=== PATIENT | female | born 1985 | race Caucasian/White ===

== ENCOUNTER 2018-12-27 08:23 | Inpatient (IN) | payer MEDICAID, OTHER ==
[2018-12-27] MEDS ORDERED: LACTATED RINGERS 500 ML IV ONE (08:47)
[2018-12-27] MEDS ORDERED: BRETHINE ONE (10:09)
[2018-12-27 11:24] LABS: Bacteria,Urine 2+ /HPF (Negative); Bilirubin,Urine NEG (Negative); Blood,Urine MOD (Negative); Color,Urine Yellow (Yellow); Urobilinogen,Urine < 2.0 mg/dL (<2.0)
[2018-12-27] MEDS ORDERED: BRETHINE SUB-Q SCH (12:00)
[2018-12-27] MEDS ORDERED: LACTATED RINGERS 1,000 ML ONE (12:30)
[2018-12-27] MEDS ORDERED: ANCEF/NS 1 GM/50 ML 1 GM/50 ML BAG IV ONE (14:30)
[2018-12-27] MEDS ORDERED: PROCARDIA*For Tocolysis only PO SCH ×2 (15:00→17:22)
[2018-12-27] MEDS ORDERED: TYLENOL PO PRN (18:57)
[2018-12-27] MEDS ORDERED: COLACE PO PRN (18:57)
[2018-12-27 19:25] LABS: Basophils # (Auto) 0.1 K/mm3 (0.0-0.1); Basophils % (Auto) 0.8 % (0.0-1.8); Eosinophils % (Auto) 0.5 % (0.0-4.3); Hematocrit 40.2 % (30.3-42.9); Hemoglobin 13.6 gm/dl (10.1-14.3); Lymphocytes # (Auto) 1.3 K/mm3 (1.2-5.4); Lymphocytes % (Auto) 14.4 % (13.4-35.0); Mean Corpuscular HGB Conc 34 % (30-34); Mean Corpuscular Volume 90 fl (79-97); Monocytes # (Auto) 0.8 K/mm3 (0.0-0.8); Monocytes % (Auto) 8.8 % (0.0-7.3); Platelet Count 202 K/mm3 (140-440); Red Blood Count 4.49 M/mm3 (3.65-5.03); Red Cell Distribution Width 14.6 % (13.2-15.2)
[2018-12-27] MEDS ORDERED: CELESTONE SOLUSPAN IM SCH (20:00)
[2018-12-27] MEDS: LACTATED RINGERS 1,000 ML IV SCH ×2 (21:18→23:08)
[2018-12-27] MEDS ORDERED: PITOCin/NS 20 UNIT/1000ML DRIP 20,000 MILLIUNITS/1,000 ML BAG IV ONE (23:10)
[2018-12-27] MEDS ORDERED: XYLOCAINE 2% INFILTRATI ONE (23:55)
--- NOTE | 2018-12-28 00:03 | History and Physical Report ---
History of Present Illness Date of examination: 12/27/18 Date of admission: 12/27/18 19:15 Chief complaint: Labor History of present illness: Pt is a 33yo HF EDC 02/01/19; EGA 34 6/7 weeks presents to L&D complaining of RUC's q 3-5 mins. Cx 10/100/V/+1 She had a previous C Section and received care at [facility]. records are available and GBS is unknown. Past History Past Medical History: no pertinent history Past Surgical History: section Family/Genetic History: none Social history: no significant social history, single - Obstetrical History Expected Date of Delivery: 02/01/19 Actual Gestation: 35 Week(s) 0 Day(s) : 2 Medications and Allergies Allergies Allergy/AdvReac Type Severity Reaction Status Date / Time No Known Allergies Allergy Verified 08/30/13 14:05 Home Medications Medication Instructions Recorded Confirmed Last Taken Type Ferrous Sulfate [Iron Supplement] 325 mg PO DAILY 08/30/13 12/27/18 12/24/18 Hi story Ferrous Sulfate [Feosol 325 MG tab] 325 mg PO BID #60 tablet 09/01/13 12/27/18 12/24/18 Rx HYDROcodone/APAP 5-325 [[place] 1 each PO Q6HR PRN #30 tablet 09/01/13 12/27/18 Unknown Rx 5/325 mg] Ibuprofen [Motrin] 800 mg PO TID PRN #30 tablet 09/01/13 12/27/18 Unknown Rx [id number]/Iron Fum/Folic/Docusate 1 each PO QDAY #30 tablet 09/01/13 12/27/18 12/24/18 Rx [ 19 Tablet] Labetalol [Normodyne TAB] 200 mg PO BID #60 tablet 09/04/13 12/27/18 11/23/18 Rx Active Meds: Active Medications Acetaminophen (Tylenol) 650 mg PO Q4H PRN PRN Reason: Pain MILD(1-3)/Fever >100.5/[facility] Last Admin: 12/27/18 21:31 Dose: 650 mg Documented by: Betamethasone Acet/Betameth SodPhos ([place] Soluspan) 12 mg IM Q24HR JASMYNE Stop: 12/28/18 10:01 Last Admin: 12/27/18 21:05 Dose: 12 mg Documented by: Docusate Sodium (Colace) 100 mg PO Q12H PRN PRN Reason: Constipation Lactated Ringer's (Lactated Ringers) 1,000 mls @ 125 mls/hr IV DIRECT [facility] Last Admin: 12/27/18 23:08 Dose: 125 mls/hr Documented by: Multivitamins/Iron/Calcium ( Vitamin) 1 each PO QDAY [facility] Nifedipine (Procardia*For Tocolysis Only*) 10 mg PO NOW [facility] Last Admin: 12/27/18 17:29 Dose: 10 mg Documented by: Terbutaline Sulfate (Brethine) 0.25 mg SUB-Q Q20MIN [facility] Stop: 12/29/18 12:01 Last Admin: 12/27/18 11:50 Dose: 0.25 mg Documented by: Review of Systems All systems: negative - Vital Signs Vital signs: Vital Signs Pulse BP 73 144/99 12/27/18 09:01 12/27/18 09:01 Temp Pulse Resp BP Pulse Ox 99.1 F 75 16 127/67 12/27/18 10:30 12/27/18 23:06 12/27/18 10:30 12/27/18 23:06 - Physical Exam Breasts: Positive: deferred Cardiovascular: Regular rate Lungs: Positive: Clear to auscultation Abdomen: Positive: normal appearance Genitourinary (Female): Positive: normal external genitalia Vagina: Positive: normal moisture Uterus: Positive: enlarged Extremities: Positive: normal - Obstetrical FHR: category 1 Uterine Contraction Monitor Mode: External Cervical Dilatation: 10 Cervical Effacement Percentage: 100 station: +1 Uterine Contraction Pattern: Regular Uterine Tone Measurement Phase: Contraction Uterine Contraction Intensity: Strong/Firm Results Result Diagrams: 12/27/18 19:06 Abnormal lab results 12/27/18 12/27/18 Range/Units 10:30 19:06 [place] % (Auto) 8.8 H (0.0-7.3) % Seg Neutrophils % 75.5 H (40.0-70.0) % U Epithel Cells (Auto) 20.0 H (0-13.0) /HPF All other labs normal. Assessment and Plan - Patient Problems (1) 35 weeks gestation of Onset Date: 12/27/18 Current Visit: Yes Status: Acute Plan to address problem: A: IUP @ 34 6/7 weeks Previous C Section Unknown GBS P: Admit to L&D for imminent delivery NICU notified (2) Previous section Onset Date: 12/27/18 Current Visit: Yes Status: Chronic
[2018-12-28] MEDS ORDERED: XYLOCAINE 2% INFILTRATI ONE (00:08)
[2018-12-28] MEDS ORDERED: SUBLIMAZE IV PRN (00:08)
[2018-12-28] MEDS ORDERED: STADOL IV PRN (00:08)
[2018-12-28] MEDS ORDERED: BRETHINE SUB-Q PRN (00:08)
[2018-12-28] MEDS ORDERED: BRETHINE IVP PRN (00:08)
[2018-12-28] MEDS ORDERED: MINERAL OIL PO PRN (00:08)
[2018-12-28] MEDS ORDERED: DULCOLAX PR PRN (00:13)
[2018-12-28] MEDS ORDERED: MILK OF MAGNESIA PO PRN (00:13)
[2018-12-28] MEDS ORDERED: TYLENOL PO PRN (00:13)
[2018-12-28] MEDS ORDERED: DERMOPLAST TP PRN (00:13)
[2018-12-28] MEDS ORDERED: PHENERGAN PR PRN (00:13)
[2018-12-28] MEDS ORDERED: TUCKS PAD TP PRN (00:13)
[2018-12-28] MEDS ORDERED: LANSINOH TP PRN (00:13)
[2018-12-28] MEDS ORDERED: NORCO 5/325 PO PRN (00:13)
[2018-12-28] MEDS ORDERED: BENADRYL PO PRN (00:13)
[2018-12-28] MEDS ORDERED: PHENERGAN PO PRN (00:13)
[2018-12-28] MEDS ORDERED: ZOFRAN IV PRN (00:13)
--- NOTE | 2018-12-28 00:19 | Procedure Note ---
OB Delivery Note - Delivery Date of Delivery: 12/28/18 Surgeon: DUSTIN CHAIDEZ Estimated blood loss: 300cc - Vaginal Delivery presentation: vertex Delivery position: OA Intrapartum events: labor-<37 weeks, PROM->1hr before delivery, extend. bradycardia Delivery induction: none Delivery monitor: external FHT, external uterine Route of delivery: Indicators for instrumentation: nonreassuring FHR tracing Delivery placenta: spontaneous Delivery cord: 3 umbilical vessels Episiotomy: none Delivery laceration: 1st degree (left vulvar) Delivery repair: vicryl Anesthesia: local Delivery comments: delivered with the aid of a vacuum, 3 pulls, no pop-offs, and placed on Mom's chest for [id number] bonding and delayed cord clamping - Infant A at 1 minute: 7 at 5 minutes: 8 Gender: Male ([id number])
[2018-12-28] MEDS ORDERED: PITOCin/NS 20 UNIT/1000ML DRIP 20 UNITS/1,000 ML BAG IV SCH ×2 (01:00)
[2018-12-28] MEDS ORDERED: LACTATED RINGERS 1,000 ML IV SCH (01:00)
[2018-12-28] MEDS ORDERED: SODIUM CHLORIDE FLUSH SYRINGE 10 ML IV NR (01:00)
[2018-12-28] MEDS ORDERED: PITOCin/NS 30 UNIT/500ML 30 UNITS/500 ML BAG IV SCH (01:00)
[2018-12-28] MEDS: IBUPROFEN PO SCH ×4 (05:59→23:14)
--- NOTE | 2018-12-28 09:36 | Progress Note ---
Assessment and Plan A: PPD#1 s/p Vacuum Assisted Stable P: Routine PP orders Anticipate discharge home in 24-48 hours Subjective - Subjective Date of service: 12/28/18 Principal diagnosis: PPD#1 s/p Vacuum assisted Interval history: See H&P and delivery note Patient reports: appetite normal, voiding normally, pain well controlled, flatus, ambulating normally, no bowel movement : doing well, other (breast/bottle) Objective - Vital Signs Latest vital signs: Vital Signs Temp Pulse Resp BP BP Pulse Ox 12/28/18 09:02 97.6 F 66 14 136/79 98 12/28/18 05:59 16 12/28/18 03:15 98.4 F 86 140/86 12/28/18 01:31 68 130/81 12/28/18 01:16 68 127/78 12/28/18 01:02 73 128/80 12/28/18 00:46 76 133/80 12/28/18 00:31 91 H 134/79 12/28/18 00:16 89 130/80 12/28/18 00:01 98 H 134/82 12/27/18 23:06 75 127/67 12/27/18 21:06 77 126/77 12/27/18 20:30 98.4 F 12/27/18 19:06 84 126/77 12/27/18 18:31 93 H 125/71 12/27/18 17:32 74 135/78 12/27/18 17:31 72 139/80 12/27/18 16:32 86 132/82 12/27/18 15:31 71 127/80 12/27/18 14:31 78 130/65 12/27/18 13:31 106 H 132/83 12/27/18 12:15 111 H 120/69 12/27/18 12:00 93 H 124/70 12/27/18 11:49 87 125/72 12/27/18 11:45 84 126/75 12/27/18 11:31 91 H 131/77 12/27/18 11:15 95 H 123/71 12/27/18 11:01 88 118/57 12/27/18 10:45 90 138/86 12/27/18 10:30 99.1 F 83 16 131/77 04/04/19 10:16 86 123/76 12/27/18 10:00 71 128/86 12/27/18 09:46 70 140/93 Intake and Output 12/27/18 12/28/18 12/28/18 23:59 07:59 15:59 Intake Total 229.167 Output Total 200 Balance 29.167 Intake: IV 229.167 Lactated Ringers 1,000 ml 229.167 @ 125 mls/hr IV DIRECT JASMYNE Rx#:[id number] Output: Urine 200 Void 200 Other: Total, Output Amount 200 Estimated Blood Loss 300 - Exam Breasts: Present: normal, Cardiovascular: Present: Regular rate, Normal S1, Normal S2, No murmurs Lungs: Present: Clear to auscultation, Normal air movement Abdomen: Present: normal appearance, soft, normal bowel sounds. Absent: distention Vulva: both: normal, laceration/episiotomy (1st degree; well approximated) Uterus: Present: firm, fundal height below umbilicus (-1) Extremities: Present: normal Deep Tendon Reflex Grade: Normal +2 - Labs Labs: Abnormal lab results 12/27/18 12/27/18 Range/Units 10:30 19:06 [place] % (Auto) 8.8 H (0.0-7.3) % Seg Neutrophils % 75.5 H (40.0-70.0) % U Epithel Cells (Auto) 20.0 H (0-13.0) /HPF
[2018-12-28 13:17] LABS: Hematocrit 36.2 % (30.3-42.9); Hemoglobin 12.1 gm/dl (10.1-14.3)
[2018-12-28] MEDS: PRENATAL VITAMIN PO SCH (14:34)
[2018-12-29] MEDS: IBUPROFEN PO SCH ×2 (01:19→13:40)
[2018-12-29] MEDS ORDERED: NORMODYNE PO ONE (05:31)
[2018-12-29] MEDS ORDERED: M-M-R II VACCINE SUB-Q ONE (06:00)
[2018-12-29] MEDS ORDERED: BOOSTRIX IM ONE (06:00)
--- NOTE | 2018-12-29 07:36 | Event Note ---
Date: 12/29/18 Several elevated blood pressures noted. Pt. without headache or visual disturbance. Labetalol po BID started. PreE labs drawn and pending.
[2018-12-29 07:39] LABS: Hematocrit 33.3 % (30.3-42.9); Hemoglobin 11.2 gm/dl (10.1-14.3); Mean Corpuscular HGB Conc 34 % (30-34); Mean Corpuscular Volume 90 fl (79-97); Platelet Count 174 K/mm3 (140-440); Red Blood Count 3.68 M/mm3 (3.65-5.03); Red Cell Distribution Width 14.5 % (13.2-15.2)
[2018-12-29 08:04] LABS: Alanine Aminotransferase 6 units/L (7-56); Albumin 2.9 g/dL (3.9-5); BUN/Creatinine Ratio 22; Blood Urea Nitrogen 11 mg/dL (7-17); Calcium 8.3 mg/dL (8.4-10.2); Hemolysis Index 3
[2018-12-29] MEDS ORDERED: NORMODYNE PO SCH ×3 (10:00→22:00)
[2018-12-29] MEDS: PRENATAL VITAMIN PO SCH (10:15)
--- NOTE | 2018-12-29 17:10 | Progress Note ---
Assessment and Plan A: day 1 S/P VAVD. P: Anticipate discharge tomorrow. Observe BPs closely. Subjective - Subjective Date of service: 12/29/18 Principal diagnosis: PPD#1 s/p Vacuum assisted Interval history: day 1 S/P vacuum assisted vaginal delivery. Had several elevated blood pressures overnight. Labs pending. BPs decreased with Labetalol, now in normal range. Patient states she experienced dizziness on the Labetalol and wants to D/C medication. Patient denies headache, visual disturbance, nausea or vomiting, chest pain, shortness of breath, abdominal pain, or heavy bleeding. Patient reports: appetite normal, voiding normally, dizzy ambulation (after taking medication, feels OK now), pain well controlled, flatus, ambulating normally, no nauseated [place]: doing well Objective - Vital Signs Latest vital signs: Vital Signs Temp Pulse Resp BP BP Pulse Ox 12/29/18 13:40 16 12/29/18 11:28 98.3 F 77 20 120/83 99 12/29/18 08:52 97.7 F 68 18 113/44 98 12/29/18 05:29 160/88 12/29/18 04:00 158/78 12/29/18 01:16 97.7 F 63 18 152/86 98 Intake and Output 12/29/18 12/29/18 12/29/18 07:59 15:59 23:59 Intake Total 240 Balance 240 Intake: Oral 240 Other: Total, Intake Amount 240 # Voids Void 1 - Exam Cardiovascular: Present: Regular rate, Normal S1, Normal S2 Lungs: Present: Clear to auscultation Abdomen: Present: normal appearance, soft. Absent: distention, tenderness, guarding, rigidity Uterus: Present: normal, firm, fundal height below umbilicus Extremities: Present: normal. Absent: tenderness, edema - Labs Labs: Abnormal lab results 12/29/18 12/29/18 Range/Units 07:26 07:26 WBC 12.0 H (4.5-11.0) K/mm3 Chloride 110.7 H (98-107) mmol/L Carbon Dioxide 21 L (22-30) mmol/L Creatinine 0.5 L (0.7-1.2) mg/dL Calcium 8.3 L (8.4-10.2) mg/dL ALT 6 L (7-56) units/L Lactate Dehydrogenase 233 H (91-180) units/L Total Protein 5.6 L (6.3-8.2) g/dL Albumin 2.9 L (3.9-5) g/dL
[2018-12-29 17:22] LABS: Basophils % (Manual) 0 % (0.0-1.8); Total Cells Counted 100
[2018-12-29 17:23] LABS: Anisocytosis 1+; Platelet Estimate Consistent w Auto
[2018-12-30] MEDS: IBUPROFEN PO SCH (00:10)
[2018-12-30 03:22] LABS: Bacteria,Urine 1+ /HPF (Negative); Bilirubin,Urine NEG (Negative); Blood,Urine LG (Negative); Color,Urine Red (Yellow); Urobilinogen,Urine < 2.0 mg/dL (<2.0)
[2018-12-30 03:25] LABS: RBC,Urine > 182.0 /HPF (0.0-6.0); WBC,Urine > 182.0 /HPF (0.0-6.0)
[2018-12-30 08:52] VITALS: BP 131/77
[2018-12-30] MEDS ORDERED: MACROBID PO SCH (10:00)
--- NOTE | 2018-12-30 12:28 | Progress Note ---
Assessment and Plan A: day 2 S/P vacuum assisted vaginal delivery. Late delivery. Hypertension controlled on Labetalol. Possible UTI (no flank pain and no systemic symptoms). P: Consulted with Dr. Shipman re: this patient, BPs, lab results, interventions. Patient discharge to home today OK's with Dr. Shipman. Discussed with patient discharge instructions and warning signs. Advised patient to take Labetalol 50 mg po BID at home (Rx called to [facility] in [place], [place]) and to follow up at OB clinic in 3 days for BP check. BP warning signs discussed with pt. Rx Macrobid 100 mg po BID also called to [facility] in [place], [place]. Advised patient to avoid intercourse, lifting, and heavy housework. Patient voiced understanding of all instructions. Subjective - Subjective Date of service: 12/30/18 Principal diagnosis: PPD#2 s/p Vacuum assisted Interval history: day 2 S/P vacuum assisted vaginal delivery. Blood pressures are better on Labetalol 50 mg po BID and patient denies any dizziness at this dose. Patient denies headache, chest pain, shortness of breath, dizziness, visual disturbance, abdominal pain, leg pain, or heavy bleeding. Patient is voiding without difficulty, ambulating well, tolerating a regular diet without nausea or vomiting. Urine shows WBCs; will treat for possible UTI. Urine C&S ordered. Patient desires discharge today. Consulted with Dr. Shipman re: this patient and he states it is OK to discharge patient home today with Rx for Labetalol 50 mg po BID and have patient follow up in OB clinic in 3 days for BP check. Patient reports: appetite normal, voiding normally, pain well controlled, flatus, ambulating normally, no dizzy ambulation, no nauseated [place]: in NICU Objective - Vital Signs Latest vital signs: Vital Signs Temp Pulse Resp BP BP Pulse Ox 12/30/18 07:54 98.8 F 72 18 131/77 96 12/30/18 04:21 63 147/83 100 12/30/18 01:00 97.9 F 64 18 151/72 99 12/29/18 21:42 69 134/71 12/29/18 20:00 98.4 F 18 149/95 12/29/18 18:43 166/83 12/29/18 18:41 97.3 F L 68 18 100 12/29/18 13:40 16 Intake and Output 12/29/18 12/30/18 12/30/18 23:59 07:59 15:59 Intake Total 240 480 Balance 240 480 Intake: Oral 240 Intake, Free Water 480 Other: Total, Intake Amount 120 # Voids Void 1 1 - Exam Cardiovascular: Present: Regular rate, Normal S1, Normal S2, No murmurs Lungs: Present: Clear to auscultation Abdomen: Present: normal appearance, soft, normal bowel sounds. Absent: distention, tenderness, guarding, rigidity Uterus: Present: normal, firm, fundal height below umbilicus. Absent: bogginess, tenderness Extremities: Present: normal. Absent: tenderness, edema - Labs Labs: Abnormal lab results 12/29/18 12/30/18 Range/Units 07:26 02:28 Seg Neuts % (Manual) 81.0 H (40.0-70.0) % Seg Neutrophils # Man 9.7 H (1.8-7.7) K/mm3 Urine WBC (Auto) > 182.0 H (0.0-6.0) /HPF
--- NOTE | 2018-12-30 12:38 | Discharge Summary ---
Providers - Providers Date of Admission: 12/27/18 19:15 Date of discharge: 12/30/18 Attending physician: PRASHANTH ROCHA MD None Primary care physician: PRASHANTH ROCHA MD Hospitalization Reason for admission: active labor Delivery: vacuum extraction Episiotomy: none Laceration: 1st degree Other procedures: none complications: none Discharge diagnosis: delivery baby: male Pertinent studies: Labs Hospital course: Stable hospital course. Condition at discharge: Good Disposition: DC-01 TO HOME OR SELFCARE - Discharge Diagnoses (1) delivery Status: Acute (2) delivery Status: Acute (3) Hypertension Status: Acute Plan - Provider Discharge Summary Activity: routine, no sex for 6 weeks, no heavy lifting 4 weeks, no strenuous exercise Diet: routine Instructions: routine Additional instructions: The following Rx were called to [facility] in [place], [place]: Labetalol 50 mg, #60, 1 po BID; Macrobid 100 mg, #14, 1 po BID. In 3 days, go to the OB clinic where you received your care to get your blood pressure checked. Call your doctor immediately for: * Fever > 100.5 * Heavy vaginal bleeding ( >1 pad per hour) * Severe persistent headache * Shortness of breath * Reddened, hot, painful area to leg or breast - Follow up plan Follow up: PRASHANTH ROCHA MD [Primary Care Provider] - 3 Days
== END 2018-12-30 16:45 | disposition home or self-care (01) | DRG 805 ==
LOC: TRG 08:23 → LD 19:15 → TRG 19:15 → OBSVTOIN 19:15 → OB 12-28 04:26
PROVIDERS: ADMIT Obstetrics & Gynecology; ATTEND Obstetrics & Gynecology
PROC: 10D07Z6 Extraction of Products of Conception, Vacuum, Via Natural or Artificial Opening (ICD-10-PCS; principal; 2018-12-28)
PROC: 0HQ9XZZ Repair Perineum Skin, External Approach (ICD-10-PCS; 2018-12-28)
PROC: 3E0234Z Introduction of Serum, Toxoid and Vaccine into Muscle, Percutaneous Approach (ICD-10-PCS; 2018-12-29)
DX: O76 Abnormality in fetal heart rate and rhythm complicating labor and delivery (principal); O60.14X0 Preterm labor third trimester with preterm delivery third trimester, not applicable or unspecified; Z37.0 Single live birth; O10.92 Unspecified pre-existing hypertension complicating childbirth; O42.913 Preterm premature rupture of membranes, unspecified as to length of time between rupture and onset of labor, third trimester; O34.211 Maternal care for low transverse scar from previous cesarean delivery; O70.0 First degree perineal laceration during delivery; Z23 Encounter for immunization; Z3A.35 35 weeks gestation of pregnancy; Z79.899 Other long term (current) drug therapy
CPT/HCPCS: 36415; 59025; 80053; 81001; 83615; 84550; 85007; 85014; 85018; 85025; 86592; 86850; 86900; 86901; 87086; 88307; 88342; 96360; 96374; G0378; J0690; J0702; J2590; J3105; J7120